=== PATIENT | female | born 1940 | race Asian ===

== ENCOUNTER 2016-07-05 06:56 | Day surgery (SDC) | payer OTHER ==
--- NOTE | 2016-07-03 10:50 | HP ---
DATE OF ADMISSION: REASON FOR ADMISSION: Left breast cancer. BRIEF HISTORY: This is a 76-year-old female whose history dates back to May of 2016. At that time the patient noted a lump in her left breast, however, she thought that this would go away with time. By June the lump has not gone away and therefore sought medical attention. At that time, she was noted to have clinically a half-dollar size mass in the left breast. Patient denies a history of weight loss or breast pain. No history of nipple discharge. She has no family history of breast cancer. Age of menarche was approximately 12. Patient has been postmenopausal for greater than 20 years. Patient was sent to obtain bilateral screening mammography. The mammography demonstrated no suspicious findings in the right breast. In the left breast, the mammogram noted a 1.8 cm mass with irregular margins, which corresponded to the palpable finding. The patient had bilateral screening sonography of the breast performed that day as well. The sonogram demonstrated no suspicious findings in the right breast. In the left breast, she was noted to have an intramammary lymph node at the 3 o'clock position, and a 1 x 1 x 1.3 cm mass was noted at the 6 o'clock position, corresponding to the palpable finding. There is no obvious lymph nodes in either axilla on the sonogram. The patient had an ultrasound-guided core biopsy performed (vacuum-assisted). 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 The largest focus of carcinoma is 4 mm. She is also noted to have DCIS solid type low nuclear grade. The lesion is ER and AL positive, HER-2 results are pending. The patient is here today for definitive breast management. Past medical history is significant for tgg-eriewft-xpbpwzaef diabetes. Patient runs a blood sugar in the 120s to 140s on medications. She has a history of hypercholesterolemia, being treated medically. She has posttraumatic depression. Patient developed depression after passing away. 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 Patient has been managed on medications and has had no further relapses. PAST SURGICAL HISTORY: None. MEDICATIONS: Metformin 100 mg b.i.d., glyburide 2.5 mg b.i.d., Actos 30 mg daily, Risperdal 0.5 mg p.o. b.i.d., Remeron 7.5 mg daily, and simvastatin 10 mg daily. ALLERGIES: None. SOCIAL HISTORY: Patient does not smoke. She does not drink. No history of drug use. PERTINENT FAMILY HISTORY: Patient's father had passed from liver cancer. IMPRESSION/PLAN: Left breast cancer: This is a 76-year-old female with a newly-discovered left breast mass. Biopsy is consistent with an invasive papillary carcinoma as well as with ductal carcinoma in situ. The patient has opted today to undergo definitive management of left breast cancer with simple mastectomy, sentinel lymph node biopsy, possible completion axillary dissection. The indications, alternatives, and complications of the procedure discussed, questions answered. Will plan to obtain written consent the day of surgery. Tevin BAUGH [id number] cc: Juan David Cardona MD
[2016-07-04 15:14] VITALS: BMI 29.2
[2016-07-05] MEDS ORDERED: ceFAZolin SODIUM 1 GM VIAL ONE (07:47)
[2016-07-05] MEDS ORDERED: MIDAZOLAM HCL 2 MG/2 ML SINGLE DOSE VIAL ONE (08:48)
[2016-07-05] MEDS ORDERED: SUCCINYLCHOLINE CHLORIDE 200 MG/10 ML VIAL ONE (09:18)
[2016-07-05] MEDS ORDERED: PROPOFOL 20 ML ONE ×2 (09:18)
[2016-07-05] MEDS ORDERED: ceFAZolin SODIUM 1 GM VIAL IVPB ONE (09:21)
[2016-07-05] MEDS ORDERED: DEXAMETHASONE SOD PHOSPHATE 4 MG/1 ML VIAL ONE (09:50)
[2016-07-05] MEDS ORDERED: ACETAMINOPHEN INJECTION 100 ML IVPB ONE (10:55)
[2016-07-05] MEDS ORDERED: ONDANSETRON 4 MG/2 ML VIAL IVPUSH PRN (12:15)
[2016-07-05] MEDS ORDERED: oxyCODONE HCL 5 MG TABLET PO PRN (12:15)
[2016-07-05] MEDS ORDERED: PROMETHAZINE HCL 25 MG/1 ML VIAL IVPUSH PRN (12:15)
[2016-07-05] MEDS ORDERED: LACTATED RINGERS SOLUTION 1,000 ML IV SCH (12:15)
--- NOTE | 2016-07-05 13:24 | OP ---
DATE OF OPERATION: 07/05/2016 PREOPERATIVE DIAGNOSIS: Left breast cancer. POSTOPERATIVE DIAGNOSIS: Left breast cancer. PROCEDURE: Left mastectomy, left limited axillary dissection, 25-cm intermittent wound closure. SURGEON: Farhan Conte MD BISCUITWARE BRUSHER: Carlos Simmons DO ANESTHESIA: Margie Torres MD, LMA. ESTIMATED BLOOD LOSS: Minimal. SPECIMEN: Breast tissue and limited axillary contents. INDICATION FOR PROCEDURE: This is a 76-year-old female with biopsy-proven left breast cancer. She is here for definitive breast management. DESCRIPTION OF PROCEDURE: The patient was identified this morning and was taken to nuclear medicine where she underwent injection of approximately 200 microcurie of technetium. She was then subsequently brought to the operating room for the above procedure. After placement of LMA, the patient's left axilla was probed with the Neoprobe. There were very minimal counts; therefore, approximately 10 mL of Lymphazurin Blue was injected intradermally between the 2 o'clock to 6 o'clock position. The breast was thus fully massage for 5 minutes. The breast and left axilla was then subsequently prepped and draped in the usual sterile fashion with ChloraPrep. An incision in the left axilla was made deep into the subcutaneous tissue. Using the Neoprobe and visualized of the blue dye, the sentinel lymph node was identified. The axillary contents around the sentinel lymph node were sharply excised as a grouping. The sentinel lymph node in vivo had counts of 40, ex vivo had counts in the 90-100 range. The background counts was 1-2 once the lymph node was removed. The blue and hot lymph node was tagged with a single silk stitch marking sentinel lymph node blue and hot. The pathologist had done frozen section on this. Frozen section was benign. The skin was then subsequently incised along the elliptical lines drawn on the breast. The superior flap was developed at the cautery to the level of the clavicle superiorly and inferiorly down. The inferior flap was taken to approximately 4 inches below the inframammary fold. Medially it was taken to the left edge of the sternal border and laterally to the latissimus. The breast itself was removed from the left chest wall. As this was being removed and the level 1 axillary contents were then subsequently taken as well. The chest wall was irrigated. The operative field was examined and noted to be hemostatic. There was some minor oozing that was noted, and this was cauterized as needed. A 10 flap J-P brought through a separate stab incision and sewn with a 2-0 silk suture. The dermis was reapproximated with interrupted inverted 3-0 chromic sutures and the skin closed with 4-0 subcuticular Biosyn followed by Dermabond. At the conclusion of the case, sponge and instrument counts were correct. ATTESTATION: Brief operative note handwritten on the preprinted form. [facility] will be queried prior to giving any prescriptions, and the narcotics will be done electronically. FARHAN CONTE M.D. [id number]
[2016-07-05 14:33] VITALS: TEMP 98.5
[2016-07-05 16:54] VITALS: BP 116/64; PULSE 100
--- NOTE | 2016-07-09 15:54 | PATH ---
Surgical Pathology Report Patient Name: SAHARA CONTE [facility]. Rec. #: [id number] /Age/Gender: 1940 (Age: 76) / F Account: [id number] Location: [facility] SURGICAL Taken: 07/05/2016 Received: 07/05/2016 Reported: 07/09/2016 Physicians: Farhan Malhotra Specimen(s) Received A: LEFT AXILLARY SENTINEL LYMPH NODE B: ADDITIONAL LEFT AXILLARY SENTINEL LYMPH NODE C: LEFT MASTECTOMY WITH SOME LEVEL 1 LYMPH NODES Clinical History Left breast carcinoma Intraoperative Consult Diagnosis A. Left axillary sentinel lymph node: Four lymph nodes, negative for carcinoma (0/4), 2TP, 3 FS, as per Dr. Hudson on 07/05/16 at 10:48 AM. B. Additional left axillary sentinel lymph node: One lymph node, negative for carcinoma (0/1), 1TP, 1FS, as per Dr. Hudson on 07/05/16 at 10:48 AM. Final Diagnosis A. LYMPH NODES, LEFT AXILLARY SENTINEL NODES, EXCISION: METASTATIC CARCINOMA PRESENT IN 3 OF 4 LYMPH NODES (3/4), EACH BETWEEN 0.2 AND 2.0 MM IN GREATEST DIMENSION (MICROMETASTASIS). METASTATIC CARCINOMA CONFIRMED WITH AE1/3 IMMUNOSTAIN. B. LYMPH NODE, LEFT AXILLARY ADDITIONAL SENTINEL NODE, EXCISION: ONE BENIGN LYMPH NODE (0/1) BY STANDARD HEMATOXYLIN AND EOSIN STAIN (MULTIPLE LEVELS EXAMINED). C. LEFT BREAST, MASTECTOMY WITH PARTIAL AXILLARY DISSECTION: MODERATELY DIFFERENTIATED INVASIVE DUCTAL CARCINOMA ARISING IN ASSOCIATION WITH PAPILLARY CARCINOMA, LUCIA GRADE 2 OF 3 (TUBULE SCORE 2 OF 3, NUCLEAR GRADE 2 OF 3, MITOTIC SCORE 2 OF 3, TOTAL 6 OF 9). INVASIVE CARCINOMA MEASURES 1.8 CM IN GREATEST DIMENSION. DUCTAL CARCINOMA IN SITU (DCIS), INTERMEDIATE NUCLEAR GRADE, SOLID AND CRIBRIFORM PATTERN PRESENT A MINOR COMPONENT. INVASIVE CARCINOMA IS 3 MM FROM THE ANTERIOR MARGIN, AND ALL MARGINS OF EXCISION ARE FREE OF CARCINOMA. DCIS IS LESS THAN 1 MM FROM THE ANTERIOR MARGIN. FOCAL AREA SUSPICIOUS FOR LYMPHOVASCULAR INVASION PRESENT. CHANGES CONSISTENT WITH PRIOR BIOPSY SITE PRESENT. REMAINING BREAST TISSUE WITH FIBROCYSTIC CHANGES INCLUDING USUAL DUCTAL HYPERPLASIA (UDH), COLUMNAR CELL CHANGE, STROMAL FIBROSIS, DUCTAL DILATATION, CYSTIC METAPLASIA, AND ASSOCIATED CALCIFICATION. ONE BENIGN AXILLARY LYMPH NODE IDENTIFIED (0/1). Comment: Also see prior biopsy [id number]. This case was discussed with Dr. Conte on July 09, 2016. The micrometastatic carcinoma in the lymph nodes is only present in the permanent sections, and is not identified on the slides from the frozen sections and touch preps. Comments Breast Invasive Carcinoma: Surgical Pathology Cancer Case Summary Based on AJCC/UICC TNM, 7th edition Procedure _X__ Total mastectomy (including nipple and skin) Lymph Node Sampling _X__ Weinert lymph node(s) _X__ Axillary dissection (partial or complete dissection) Specimen Laterality _X__ Left Tumor Size: Size of Largest Invasive Carcinoma Greatest dimension of largest focus of invasion over 1 mm: 18 mm Tumor Focality _X__ Single focus of invasive carcinoma Macroscopic and Microscopic Extent of Tumor Skin _X__ Invasive carcinoma does not invade into the dermis or epidermis Nipple _X__ DCIS does not involve the nipple epidermis Ductal Carcinoma In Situ (DCIS) _X__ DCIS is present _X__ as a minor component (< 25% of tumor) Histologic Type of Invasive Carcinoma : _X__ Invasive carcinoma of no special type (ductal, not otherwise specified) Histologic Grade: (Merlin Histologic Score) Tubular Differentiation _X__ Score 2 Nuclear Pleomorphism _X__ Score 2 Mitotic Rate _X__ Score 2 Overall Grade _X__ Grade 2: scores of 6 or 7 (moderately differentiated) Margins _X__ Margins uninvolved by invasive carcinoma (required only if residual invasive carcinoma is present in specimen) Distance from closest margin: 3 mm Specify margin: ANTERIOR _X__ Margin(s) close to (< 1 mm) DCIS: ANTERIOR Lymph-Vascular Invasion _X__ Indeterminate Lymph Nodes Total number of lymph nodes examined (sentinel and nonsentinel): 6 Number of sentinel lymph nodes examined: 5 Number of lymph nodes with macrometastases ( > 2 mm): 0 Number of lymph nodes with micrometastases (>0.2 mm to 2 mm and/or >200cells):3 Number of lymph nodes with isolated tumor cells (=0.2 mm and =200 cells): 0 Size of largest metastatic deposit (if present): ~1.8 mm Extranodal Extension _X__ Not identified Pathologic Staging (pTNM) Primary Tumor (Invasive Carcinoma): pT1c Regional Lymph Nodes (pN): pN1mi Biomarker Studies Results of ER and MD studies performed on a prior biopsy ([id number]) at [facility], [place] are as follows: ER (clone [id number] mouse monoclonal antibody by [employer]): 100% nuclear staining with strong intensity (Positive). MD (clone16 mouse monoclonal antibody by [employer]) : >90% nuclear staining with moderate to strong intensity (Positive). Results of Her2 (IHC) & Ki-67 studies performed on a prior biopsy ([id number]) at [place], [place] ([id number]) are as follows: Her2 IHC (EP3 from [employer], formerly known as [id number], using [employer]ave Polymer Refine detection kit): 1+ NEGATIVE Ki67: ~20% (Intermediate) Positive and negative controls (internal if applicable) show appropriate results. Formalin fixation and cold ischemic times are within current ASCO/CAP recommendations for ER, MD and Her2 testing. Electronically Signed Mateus Capps M.D. Gross Description A. Received fresh, labeled "left axillary sentinel lymph node," is a 3.5 x 2.5 x 1.0 cm portion of yellow, lobulated adipose tissue. Sectioning reveals 4 harden lymph nodes ranging from 0.4-1.5 cm in greatest dimension. The two larger lymph nodes are bisected and touch preps are performed. The specimens are entirely submitted for frozen section. The frozen section residue is entirely submitted in 3 cassettes as follows: 1-one whole bisected lymph node; 2-one whole bisected lymph node; 3-two whole lymph nodes. B. Received fresh, labeled "additional left axillary sentinel lymph node," is a 0.7 cm greatest dimension harden, irregular lymph node. The specimen is bisected and a touch prep is performed. The specimen is entirely submitted for frozen section. The frozen section residue is entirely submitted in one cassette. C. Received in formalin, labeled "left mastectomy with some level 1 lymph nodes," is a 459 gram, 16.5 x 14.0 x 3.8 cm. left mastectomy specimen with a suture marking the axillary tail of the breast, per the surgeon. The anterior surface displays a 16.0 x 7.0 cm harden, elliptical portion of skin with a 1.4 cm diameter nipple. The deep margin is inked black and the anterior soft tissue margin is inked blue. The specimen is serially sectioned from medial to lateral. Sectioning reveals a 2.1 x 2.0 x 1.5 cm harden, indurated mass associated with a hemorrhagic biopsy cavity. The mass is in the lower inner quadrant (LIQ) at 0.3 cm from the anterior soft tissue margin. There is a 0.9 x 0.7 x 0.4 cm firm focus 2 cm superior to the mass in the upper inner quadrant (UIQ), possibly consistent with an intraparenchymal lymph node. The remaining breast parenchyma displays foci of white fibrous tissue. Sectioning of the axillary fat reveals a single 1.1 cm in greatest dimension lymph node. No additional lymph nodes are identified within the axillary fat. Hematology Specialist sections are submitted in 23 cassettes as follows: 1-serially sectioned nipple; 2-subareolar shave; 3-full face section of mass with anterior soft tissue margin; 4-additional full face section of mass with anterior soft tissue margin; 0-5-umvruunlps mass with anterior soft tissue margin; 9-3-nyrnfiquwa uninvolved LIQ tissue; 10-UIQ possible intraparenchymal lymph node, bisected; 12-25-jjlthjufjn UIQ tissue; 13-14-upper outer quadrant; 15-17-lower outer quadrant; 18-additional anterior soft tissue margin; 19-skin; 20-deep margin; 21-one whole axillary lymph node, bisected; 61-48-wcwmmnwg fat. Total formalin fixation time: Approximately 30 hours 07/05/201607/05/2016
== END 2016-07-05 15:35 | disposition home or self-care (01) ==
LOC: JASU-SURG 06:56
PROVIDERS: ATTEND Surgery
PROC: C71L1ZZ Planar Nuclear Medicine Imaging of Upper Chest Lymphatics using Technetium 99m (Tc-99m) (ICD-10-PCS; 2016-07-05)
PROC: 0HBU0ZZ Excision of Left Breast, Open Approach (ICD-10-PCS; principal; 2016-07-05 09:00)
PROC: 07B60ZX Excision of Left Axillary Lymphatic, Open Approach, Diagnostic (ICD-10-PCS; 2016-07-05 09:00)
DX: C50.912 Malignant neoplasm of unspecified site of left female breast (principal); C77.3 Secondary and unspecified malignant neoplasm of axilla and upper limb lymph nodes; Z17.0 Estrogen receptor positive status [ER+]
CPT/HCPCS: 78195-TC; 88108-TC; 88307-TC; 88331-TC; 88332; 88342-TC; 94010; 94760; A9541

== ENCOUNTER 2016-07-11 07:28 | Day surgery (SDC) | payer OTHER ==
[2016-07-10 17:52] VITALS: BMI 29.2
[2016-07-11] MEDS ORDERED: ceFAZolin SODIUM 1 GM VIAL ONE (08:00)
[2016-07-11] MEDS ORDERED: LIDOCAINE HCL/PF 2% SDV 5ML VIAL ONE (09:51)
[2016-07-11] MEDS ORDERED: DEXAMETHASONE SOD PHOSPHATE 4 MG/1 ML VIAL ONE (09:51)
[2016-07-11] MEDS ORDERED: PROPOFOL 20 ML ONE (09:52)
[2016-07-11] MEDS ORDERED: ceFAZolin SODIUM 1 GM VIAL IVPB ONE (09:56)
[2016-07-11] MEDS ORDERED: PHENYLEPHRINE HCL 10 MG/1 ML SINGLE DOSE VIAL ONE (10:33)
[2016-07-11] MEDS ORDERED: ONDANSETRON 4 MG/2 ML VIAL IVPUSH PRN (11:06)
[2016-07-11] MEDS ORDERED: ACETAMINOPHEN 1000 MG/100 ML VIAL (NON FORMULARY) IVPB ONE (11:06)
[2016-07-11] MEDS ORDERED: oxyCODONE HCL 5 MG TABLET PO PRN (11:06)
[2016-07-11] MEDS ORDERED: LACTATED RINGERS SOLUTION 1,000 ML IV SCH (11:15)
[2016-07-11 12:56] VITALS: TEMP 98.7
--- NOTE | 2016-07-11 13:06 | HP ---
DATE OF ADMISSION: 07/11/2016 BRIEF HISTORY: This is a 76-year-old female with diagnosis of left breast cancer. She underwent a left mastectomy, sentinel lymph node biopsy approximately a week ago. Pathology demonstrated clear margins. However, there was a site of DCIS along the 7 o'clock region that is 1 mm from the cut edge. Patient is here today for a wide excision of this area. PAST MEDICAL HISTORY: Significant for diabetes. No hypertension or coronary artery disease. PAST SURGICAL HISTORY: As mentioned above, MEDICATIONS: Refer to previous chart. ALLERGIES: None. SOCIAL HISTORY: Patient does not smoke nor drink. PHYSICAL EXAMINATION: Lungs: Clear. Heart: Regular rhythm. Abdomen: Soft. Incisions are healing beautifully without evidence of infection, hematoma, or seroma. RAJ is serous. IMPRESSION/PLAN: Left breast cancer status post mastectomy. Patient with clear margins, but the closest margin is 1 mm. Therefore, patient is here today for a re-excision. The indications, alternatives, and complications were discussed. Questions were answered. We will plan to obtain written consent the day of surgery. Tevin BAUGH [id number] cc: Juan David Cardona MD
[2016-07-11 14:09] VITALS: BP 100/69; PULSE 88
--- NOTE | 2016-07-12 08:59 | OP ---
DATE OF OPERATION: 07/11/2016 PREOPERATIVE DIAGNOSIS: History of left breast cancer. POSTOPERATIVE DIAGNOSIS: History of left breast cancer. PROCEDURE: Wide excision of left chest wall skin and subcutaneous fat with 8-cm intermittent closure. SURGEON: Farhan Camacho MD ELEVATED GUARD: Carlos Simmons MD ANESTHESIA: Jerald Carlos MD (LMA) ESTIMATED BLOOD LOSS: Minimal. SPECIMEN: Skin and subcutaneous fat. INDICATION FOR PROCEDURE: This is a 76-year-old female with a diagnosis of left breast cancer. All margins free, closest margin 1 mm at approximately the 7 o'clock position. The patient is here today for wide excision. Patient identified and appropriately positioned on the operating room table. The skin was marked approximately 2 cm from the previous incision. An ellipse was then drawn around this 2-cm area, and the skin was then excised from the medial edge out to the 2/3 of the clavicle. This was done in an elliptical fashion. The skin was incised with a 15-blade knife and deepened into the subcutaneous tissue. The superior flap was taken right to the chest wall. The inferior flap was created with the cautery down beyond the inframammary fold, and the fat and the skin on the inferior flap were then taken along with the specimen. This was taken on to the rectus muscle and then divided sharply. The specimen was then marked in the following fashion: A single long 12 o'clock, single short 3 o'clock, and double long approximately 7 o'clock in relation to the previous excision. The chest wall was then irrigated. The operative field examined, noted to be hemostatic. The dermis reapproximated with interrupted inverted 3-0 chromic suture and the skin closed with a running 4-0 subcuticular Biosyn followed by Dermabond. At the conclusion of the case, sponge and needle counts were correct. ATTESTATION: Brief operative note handwritten on the preprinted form. [facility] queried prior to giving any narcotics. Tevin BAUGH [id number] cc: Juan David Cardona MD
--- NOTE | 2016-07-12 14:17 | PATH ---
Surgical Pathology Report Patient Name: SAHARA CONTE [facility]. Rec. #: [id number] /Age/Gender: 1940 (Age: 76) / F Account: [id number] Location: [facility] SURGICAL Taken: 07/11/2016 Received: 07/11/2016 Reported: 07/12/2016 Physicians: Farhan Malhotra Specimen(s) Received A: LEFT CHEST WALL EXCISION B: LEFT CHEST WALL MEDIAL TISSUE Clinical History Left breast cancer Final Diagnosis A. SKIN AND SOFT TISSUE, LEFT CHEST WALL, WIDE EXCISION: ADIPOSE TISSUE AND FIBROUS TISSUE WITH FAT NECROSIS AND FIBROSIS CONSISTENT WITH PRIOR EXCISION SITE. SKIN WITH CHANGES CONSISTENT WITH PRIOR EXCISION. NO RESIDUAL INVASIVE DUCTAL CARCINOMA OR DUCTAL CARCINOMA IN SITU (DCIS) IDENTIFIED. B. SOFT TISSUE, LEFT CHEST WALL MEDIAL TISSUE, EXCISION: BENIGN ADIPOSE TISSUE AND FIBROUS TISSUE. NO RESIDUAL INVASIVE DUCTAL CARCINOMA OR DUCTAL CARCINOMA IN SITU (DCIS) IDENTIFIED. Comment: See prior specimens [id number] and [id number]. Electronically Signed Mateus Capps M.D. Gross Description A. Received fresh, labeled "left chest wall wide excision," is a 7.0 x 6.0 x 2.5 cm irregular portion of fibroadipose tissue which is surfaced by a 7.5 x 2.0 cm harden, elliptical portion of skin. The epidermal surface displays a central, linear scar from 9:00 to 3:00. There is a single long stitch marking the 12:00 aspect, a short stitch marking the 3:00 aspect, and a double long stitch marking the 7:00 aspect of the specimen, per the surgeon. The specimen is inked as follows: Superior rim of skin blue, lateral (3:00 tip) blue, medial (9:00 tip) yellow, anterior-inferior soft tissue (within 2 cm of the inferior aspect of skin) red, inferior green, deep black. The specimen is serially sectioned from 3:00 to 9:00. Sectioning reveals unremarkable fibroadipose tissue. No masses are identified. The specimen is entirely submitted in 28 cassettes the follows: 1-3:00 (lateral) tip; 2-14-hedalxrq aspect of skin with anterior-inferior soft tissue margin sequentially submitted from 3:00 to 9:00 (area of 7:00 suture in cassettes 8-10); 16-79-mrqulacc aspect of skin with deep margin sequentially submitted from 3:00 to 9:00 (area of 7:00 suture in cassette 19); 21-9:00 (medial) tip; 18-01-rsjymufk (greater than 2 cm from inferior aspect of skin) margin and additional deep margin sequentially submitted from 3:00 to 9:00. Total formalin fixation time: Approximately 7 hours. B. Received in formalin, labeled "left chest medial tissue," are 3 harden-yellow, irregular, unoriented fragments of fibroadipose tissue ranging from 1.1 x 0.6 x 0.3 cm to 3.1 x 1.5 x 0.9 cm. The specimens are inked green and serially sectioned. Sectioning reveals unremarkable fibroadipose tissue. No masses are identified. The specimen is entirely submitted in 6 cassettes as follows: 1-smallest portion of tissue, trisected; 2-medium portion of tissue, trisected; 8-9-msewxkxrzeoi submitted largest portion of tissue. 07/11/201607/11/2016
== END 2016-07-11 14:00 | disposition home or self-care (01) ==
LOC: JASU-SURG 07:28
PROVIDERS: ATTEND Surgery
PROC: 0WB80ZX Excision of Chest Wall, Open Approach, Diagnostic (ICD-10-PCS; 2016-07-11)
PROC: 0JQ60ZZ Repair Chest Subcutaneous Tissue and Fascia, Open Approach (ICD-10-PCS; principal; 2016-07-11 09:00)
DX: C50.912 Malignant neoplasm of unspecified site of left female breast (principal)
CPT/HCPCS: 88305-TC; 94760